=== PATIENT | female | born 1955 | race Caucasian/White ===

== ENCOUNTER 2023-01-11 13:06 | Inpatient (IN) | payer OTHER ==
[~2023-01-11] VITALS: Ht 167.6 cm; Wt 188.4 kg
[~2023-01-11 13:06] MED LIST: ALBUAER3 IN; CLIN300C70 PO; FURO1TAB31 PO; LISI20TA56 PO; METF-370 PO; POTA10TA51 PO
[2023-01-11 13:30] LABS: Basophils # (auto) 0.1 10 ^3/uL (0-0.2); Basophils % (auto) 0.7 % (0.0-2.0); Eosinophils # (auto) 0.3 10 ^3/uL (0-0.8); Eosinophils % (auto) 2.7 % (0.0-7.0); Hematocrit 48.5 % (36.0-46.0); Lymphocytes # (auto) 2.7 10 ^3/uL (0.4-5.4); Mean Corpuscular Hemoglobin 29.2 pg (28.0-32.0); Mean Corpuscular Volume 88.4 fL (80.0-100.0); Monocytes # (auto) 0.9 10 ^3/uL (0-1.3); Neutrophils # (auto) 6.4 10 ^3/uL (1.6-8.6); Neutrophils % (auto) 61.6 % (37.0-80.0); Nucleated Red Blood Cells % 0.1 %; Red Blood Cells 5.48 10^6/uL (4.0-5.20); Red Cell Distribution Width 14.3 % (11.8-14.3); White Blood Cell 10.3 10^3/uL (4.4-10.8)
[2023-01-11 13:49] LABS: INR 1.01 (0.9-1.15); Partial Thromboplastin Time 27.6 SEC (24.5-34.5)
[2023-01-11 13:58] LABS: Albumin 3.2 g/dL (3.4-5.0); Calcium 8.9 mg/dL (8.5-10.1); Magnesium 1.7 mg/dL (1.6-2.6); Potassium 4.3 mmol/L (3.5-5.1)
[2023-01-11 14:01] LABS: Bilirubin, Total 0.6 mg/dL (0.2-1.0); Total Protein 7.1 g/dL (6.4-8.2)
[2023-01-11 14:06] VITALS: PULSE 123; RESP 20; O2SAT 93
[2023-01-11] MEDS ORDERED: NITROGLYCERIN 0.4 MG SL TAB SL ONE (14:30)
[2023-01-11] MEDS ORDERED: dilTIAZem 25 MG/5 ML VIAL IV ONE (18:00)
[2023-01-11 20:11] VITALS: PULSE 126; RESP 22; O2SAT 92
[2023-01-11 20:30] LABS: Urine Bacteria MOD /hpf (None Seen); Urine Blood Negative /uL (Negative); Urine Specific Gravity 1.022 (1.001-1.035); Urine WBC 2 /hpf (0 - 5)
[2023-01-11] MEDS ORDERED: METOPROLOL TARTRATE 25 MG TAB PO ONE (20:30)
[2023-01-11] MEDS ORDERED: FUROSEMIDE 20 MG/2 ML VIAL IV ONE (20:45)
[2023-01-11] MEDS ORDERED: levoFLOXacin 500MG 100 ML IV ONE (21:00)
[2023-01-11] MEDS ORDERED: AMIODARONE HCL 150 MG in D5W 5% 100 ML IV ONE (22:45)
[2023-01-11] MEDS ORDERED: NITROGLYCERIN 0.4 MG SL TAB SL PRN (22:45)
[2023-01-11] MEDS ORDERED: MORPHINE SULFATE INJ 2 MG/ml SYRG IV PRN (22:45)
[2023-01-11] MEDS ORDERED: MAGNESIUM SULFATE 1GM/100ML 100 ML IV ONE (23:00)
[2023-01-11] MEDS ORDERED: AMIODARONE 450mg/250ml AE 250 ML IV SCH (23:00)
[2023-01-11] MEDS ORDERED: DEXTROSE (50%) 50ML SYRG IV PRN (23:30)
[2023-01-11] MEDS ORDERED: KETOROLAC TROMETH 30 MG/ML 1ML VIAL IV ONE (23:45)
[2023-01-12] MEDS ORDERED: AMIODARONE HCL (50 MG/ ML) 3 ML VIAL IV ONE (00:28)
[2023-01-12] MEDS: ACCU-CHEK COMFORT CURVE STRIP VI SCH ×4 (00:39→18:04)
[2023-01-12] MEDS: InsuLIN REG 1unit/0.01ml Soln (100units/ml) SC SCH ×4 (00:45→18:10)
[2023-01-12] MEDS: ACETAMINOPHEN 325 MG TAB PO PRN (03:15)
[2023-01-12 06:30] LABS: Basophils # (auto) 0.1 10 ^3/uL (0-0.2); Eosinophils # (auto) 0.2 10 ^3/uL (0-0.8); Eosinophils % (auto) 1.6 % (0.0-7.0); Hematocrit 50.3 % (36.0-46.0); Hemoglobin 16.7 g/dL (12.2-16.2); Lymphocytes # (auto) 2.4 10 ^3/uL (0.4-5.4); Lymphocytes % (auto) 19.7 % (10.0-50.0); Mean Corpuscular Hgb Conc. 33.1 g/dL (32.0-36.0); Mean Corpuscular Volume 87.5 fL (80.0-100.0); Monocytes # (auto) 1.3 10 ^3/uL (0-1.3); Monocytes % (auto) 10.7 % (0.0-12.0); Neutrophils # (auto) 8.3 10 ^3/uL (1.6-8.6); Nucleated Red Blood Cells % 0.6 %; Red Blood Cells 5.75 10^6/uL (4.0-5.20); Red Cell Distribution Width 13.9 % (11.8-14.3); White Blood Cell 12.4 10^3/uL (4.4-10.8)
[2023-01-12] MEDS: FUROSEMIDE 20 MG/2 ML VIAL IV SCH ×2 (06:31→13:31)
[2023-01-12 07:11] LABS: Albumin 3.2 g/dL (3.4-5.0); Calcium 9.3 mg/dL (8.5-10.1); Potassium 4.2 mmol/L (3.5-5.1)
[2023-01-12 07:14] LABS: BUN/Creatinine Ratio 22.6 (10.0-20.0); Bilirubin, Total 0.7 mg/dL (0.2-1.0); Total Protein 8.1 g/dL (6.4-8.2)
[2023-01-12 07:56] VITALS: PULSE 125; RESP 22; O2SAT 94
[2023-01-12] MEDS: AMIODARONE 450mg/250ml AE 250 ML IV SCH (09:15)
[2023-01-12] MEDS ORDERED: CIPROFLOXACIN 400MG/200ML 200 ML IV SCH (10:00)
[2023-01-12] MEDS: METOPROLOL TARTRATE 50 MG TAB PO SCH ×2 (12:24→22:06)
[2023-01-12] MEDS ORDERED: ASPirin 81 mg TAB PO ONE (16:45)
[2023-01-12] MEDS ORDERED: cefTRIAXone 1GM/50ML D5W 50 ML IV ONE (16:45)
[2023-01-12] MEDS ORDERED: DIGOXIN (250MCG/ML) 2 ML AMPULE IV ONE (16:45)
[2023-01-12] MEDS: FUROSEMIDE 40 MG/4 ML VIAL IV SCH (18:02)
[2023-01-12] MEDS: ENOXAPARIN SOD 150 MG/1 ML SYRINGE SC SCH (18:04)
[2023-01-12 19:30] VITALS: PULSE 128; RESP 20; O2SAT 91
[2023-01-12 23:43] VITALS: BP 108/53; PULSE 127; RESP 19; TEMP 98.2; O2SAT 95
[2023-01-13] VITALS (7 sets, daily range): BP systolic 91–123; BP diastolic 49–71; PULSE 115–130; RESP 20–22; TEMP 97.4–98.7; O2SAT 94–96
[2023-01-13] MEDS: ACCU-CHEK COMFORT CURVE STRIP VI SCH ×4 (00:01→18:25)
[2023-01-13] MEDS: InsuLIN REG 1unit/0.01ml Soln (100units/ml) SC SCH ×4 (00:02→18:26)
[2023-01-13] MEDS ORDERED: ASPI1TAB20 PO (01:19)
[2023-01-13] MEDS ORDERED: GABA-1250 PO (01:19)
[2023-01-13] MEDS ORDERED: LORA-622 PO (01:19)
[2023-01-13] MEDS ORDERED: ATOR40TA52 PO (01:19)
[2023-01-13] MEDS ORDERED: LOSA50TA46 PO (01:19)
[2023-01-13] MEDS ORDERED: GLIP5TAB12 PO (01:19)
[2023-01-13] MEDS: AMIODARONE 450mg/250ml AE 250 ML IV SCH ×2 (03:50→09:03)
[2023-01-13] MEDS: ENOXAPARIN SOD 150 MG/1 ML SYRINGE SC SCH ×2 (05:56→18:45)
[2023-01-13] MEDS: FUROSEMIDE 40 MG/4 ML VIAL IV SCH ×2 (05:56→16:31)
[2023-01-13 06:21] LABS: Basophils # (auto) 0.1 10 ^3/uL (0-0.2); Basophils % (auto) 0.5 % (0.0-2.0); Eosinophils # (auto) 0.3 10 ^3/uL (0-0.8); Eosinophils % (auto) 2.3 % (0.0-7.0); Hematocrit 48.7 % (36.0-46.0); Hemoglobin 16.3 g/dL (12.2-16.2); Lymphocytes # (auto) 3.6 10 ^3/uL (0.4-5.4); Lymphocytes % (auto) 30.3 % (10.0-50.0); Mean Corpuscular Hemoglobin 29.2 pg (28.0-32.0); Mean Corpuscular Hgb Conc. 33.5 g/dL (32.0-36.0); Mean Corpuscular Volume 87.3 fL (80.0-100.0); Monocytes # (auto) 1.4 10 ^3/uL (0-1.3); Monocytes % (auto) 12.1 % (0.0-12.0); Neutrophils # (auto) 6.5 10 ^3/uL (1.6-8.6); Neutrophils % (auto) 54.8 % (37.0-80.0); Nucleated Red Blood Cells % 0.4 %; Red Blood Cells 5.58 10^6/uL (4.0-5.20); Red Cell Distribution Width 14.1 % (11.8-14.3)
[2023-01-13 06:28] LABS: Potassium 3.7 mmol/L (3.5-5.1)
[2023-01-13 06:37] LABS: Bilirubin, Total 0.7 mg/dL (0.2-1.0); Calcium 8.8 mg/dL (8.5-10.1); Magnesium 1.9 mg/dL (1.6-2.6); Total Protein 7.6 g/dL (6.4-8.2)
[2023-01-13] MEDS: DIGOXIN (250MCG/ML) 2 ML AMPULE IV SCH (08:38)
[2023-01-13] MEDS: ASPirin 81 mg TAB PO SCH (08:44)
[2023-01-13] MEDS: METOPROLOL TARTRATE 50 MG TAB PO SCH ×2 (08:48→21:58)
[2023-01-13] MEDS: cefTRIAXone 1GM/50ML D5W 50 ML IV SCH (08:58)
[2023-01-13] MEDS ORDERED: AMIODARONE HCL 150 MG in D5W 5% 100 ML IV ONE (15:30)
[2023-01-13] MEDS ORDERED: AMIODARONE 450mg/250ml AE 250 ML IV SCH (15:30)
[2023-01-13] MEDS ORDERED: MAGNESIUM SULFATE 1GM/100ML 100 ML IV ONE (16:30)
[2023-01-13] MEDS ORDERED: DIGOXIN (250MCG/ML) 2 ML AMPULE IV ONE (23:15)
[2023-01-14] VITALS (7 sets, daily range): BP systolic 96–134; BP diastolic 53–92; PULSE 119–130; RESP 18–20; TEMP 97.6–98.2; O2SAT 93–99
[2023-01-14] MEDS: InsuLIN REG 1unit/0.01ml Soln (100units/ml) SC SCH ×5 (01:11→23:50)
[2023-01-14] MEDS: AMIODARONE 450mg/250ml AE 250 ML IV SCH ×2 (03:02→15:26)
[2023-01-14] MEDS: FUROSEMIDE 40 MG/4 ML VIAL IV SCH ×2 (06:06→18:04)
[2023-01-14] MEDS: ENOXAPARIN SOD 150 MG/1 ML SYRINGE SC SCH (06:06)
[2023-01-14] MEDS: ACCU-CHEK COMFORT CURVE STRIP VI SCH ×5 (06:19→23:50)
[2023-01-14 06:40] LABS: Basophils # (auto) 0.1 10 ^3/uL (0-0.2); Basophils % (auto) 0.4 % (0.0-2.0); Eosinophils # (auto) 0.3 10 ^3/uL (0-0.8); Eosinophils % (auto) 1.7 % (0.0-7.0); Hematocrit 47.6 % (36.0-46.0); Hemoglobin 15.8 g/dL (12.2-16.2); Lymphocytes % (auto) 19.4 % (10.0-50.0); Mean Corpuscular Hemoglobin 29.3 pg (28.0-32.0); Mean Corpuscular Hgb Conc. 33.3 g/dL (32.0-36.0); Monocytes # (auto) 1.8 10 ^3/uL (0-1.3); Monocytes % (auto) 11.7 % (0.0-12.0); Neutrophils # (auto) 10.5 10 ^3/uL (1.6-8.6); Neutrophils % (auto) 66.8 % (37.0-80.0); Nucleated Red Blood Cells % 0.3 %; Potassium 4.1 mmol/L (3.5-5.1); Red Blood Cells 5.41 10^6/uL (4.0-5.20); Red Cell Distribution Width 14.1 % (11.8-14.3); White Blood Cell 15.7 10^3/uL (4.4-10.8)
[2023-01-14 06:45] LABS: Albumin 3.1 g/dL (3.4-5.0); BUN/Creatinine Ratio 26.4 (10.0-20.0); Calcium 8.2 mg/dL (8.5-10.1); Magnesium 1.9 mg/dL (1.6-2.6)
[2023-01-14 06:48] LABS: Bilirubin, Total 0.7 mg/dL (0.2-1.0); Total Protein 6.8 g/dL (6.4-8.2)
[2023-01-14] MEDS ORDERED: MAGNESIUM SULFATE 1GM/100ML 100 ML IV ONE (07:45)
[2023-01-14] MEDS ORDERED: MORPHINE SULFATE INJ 2 MG/ml SYRG IV ONE (08:45)
[2023-01-14] MEDS: ASPirin 81 mg TAB PO SCH (10:18)
[2023-01-14] MEDS: METOPROLOL TARTRATE 50 MG TAB PO SCH ×2 (10:18→21:43)
[2023-01-14] MEDS ORDERED: METOPROLOL TARTRATE 25 MG TAB PO ONE (12:30)
[2023-01-14] MEDS: cefTRIAXone 1GM/50ML D5W 50 ML IV SCH (15:36)
[2023-01-14] MEDS: DIGOXIN (250MCG/ML) 2 ML AMPULE IV SCH (15:52)
[2023-01-14] MEDS: APIXABAN 5 MG TAB PO SCH (21:43)
[2023-01-14] MEDS: SIMETHICONE 80 MG CHEWABLE TABLET PO PRN (21:43)
[2023-01-14] MEDS: ACETAMINOPHEN 325 MG TAB PO PRN (21:49)
[2023-01-15 05:00] VITALS: BP 128/76; PULSE 125; RESP 16; TEMP 97.5; O2SAT 98
[2023-01-15] MEDS: AMIODARONE 450mg/250ml AE 250 ML IV SCH (05:15)
[2023-01-15] MEDS: FUROSEMIDE 40 MG/4 ML VIAL IV SCH (05:38)
[2023-01-15] MEDS: InsuLIN REG 1unit/0.01ml Soln (100units/ml) SC SCH ×2 (05:44→11:56)
[2023-01-15] MEDS: ACCU-CHEK COMFORT CURVE STRIP VI SCH ×2 (05:44→11:55)
[2023-01-15 06:18] LABS: Basophils # (auto) 0.1 10 ^3/uL (0-0.2); Basophils % (auto) 0.6 % (0.0-2.0); Eosinophils # (auto) 0.2 10 ^3/uL (0-0.8); Eosinophils % (auto) 1.9 % (0.0-7.0); Hematocrit 46.3 % (36.0-46.0); Hemoglobin 15.5 g/dL (12.2-16.2); Lymphocytes # (auto) 3.9 10 ^3/uL (0.4-5.4); Lymphocytes % (auto) 29.2 % (10.0-50.0); Mean Corpuscular Hemoglobin 29.3 pg (28.0-32.0); Mean Corpuscular Hgb Conc. 33.4 g/dL (32.0-36.0); Mean Corpuscular Volume 87.9 fL (80.0-100.0); Monocytes # (auto) 1.7 10 ^3/uL (0-1.3); Monocytes % (auto) 12.8 % (0.0-12.0); Neutrophils # (auto) 7.4 10 ^3/uL (1.6-8.6); Neutrophils % (auto) 55.5 % (37.0-80.0); Potassium 3.8 mmol/L (3.5-5.1); Red Blood Cells 5.27 10^6/uL (4.0-5.20); White Blood Cell 13.4 10^3/uL (4.4-10.8)
[2023-01-15 06:31] LABS: Magnesium 2.3 mg/dL (1.6-2.6)
[2023-01-15 06:37] LABS: Total Protein 6.9 g/dL (6.4-8.2)
[2023-01-15] MEDS ORDERED: SODIUM CHLORIDE 0.9% 1,000 ML IV SCH (07:30)
[2023-01-15 08:00] VITALS: BP 101/62; PULSE 122; PULSE 127; RESP 20; TEMP 98.1; O2SAT 93
[2023-01-15 08:53] LABS: INR 1.07 (0.9-1.15); Partial Thromboplastin Time 31.7 SEC (24.5-34.5)
[2023-01-15 09:00] VITALS: BP 101/62; PULSE 122; RESP 20; TEMP 98.1; O2SAT 93
[2023-01-15] MEDS ORDERED: DIGO0.12 PO (09:35)
[2023-01-15] MEDS ORDERED: APIX5TAB PO ×2 (09:35)
[2023-01-15] MEDS ORDERED: AMIO200T13 PO (09:35)
[2023-01-15] MEDS ORDERED: MET50T PO (09:35)
[2023-01-15] MEDS: cefTRIAXone 1GM/50ML D5W 50 ML IV SCH (10:03)
[2023-01-15] MEDS: ASPirin 81 mg TAB PO SCH (10:03)
[2023-01-15] MEDS: METOPROLOL TARTRATE 50 MG TAB PO SCH (10:03)
[2023-01-15] MEDS: APIXABAN 5 MG TAB PO SCH (10:03)
[2023-01-15] MEDS: DIGOXIN (250MCG/ML) 2 ML AMPULE IV SCH (10:04)
[2023-01-15] MEDS: SIMETHICONE 80 MG CHEWABLE TABLET PO PRN (10:34)
[2023-01-15 13:00] VITALS: BP 109/58; PULSE 104; RESP 20; TEMP 98; O2SAT 99
[2023-01-15 16:38] VITALS: BP 148/100; PULSE 118; RESP 20; TEMP 98; O2SAT 98
== END 2023-01-15 18:00 | disposition home health service (06) | DRG 309 ==
LOC: ER 13:06 → TELE 23:01 → OBSVTOIN 01-12 14:02 → TELE-EAST 01-12 22:50
PROVIDERS: ADMIT Internal Medicine; ATTEND Internal Medicine
PROC: 05HD33Z Insertion of Infusion Device into Right Cephalic Vein, Percutaneous Approach (ICD-10-PCS; principal; 2023-01-14)
PROC: B54MZZA Ultrasonography of Right Upper Extremity Veins, Guidance (ICD-10-PCS; 2023-01-14)
DX: I48.20 Chronic atrial fibrillation, unspecified (principal); J91.8 Pleural effusion in other conditions classified elsewhere; N39.0 Urinary tract infection, site not specified; Z68.44 Body mass index [BMI] 60.0-69.9, adult; I11.0 Hypertensive heart disease with heart failure; I47.1 Supraventricular tachycardia; I48.92 Unspecified atrial flutter; I50.9 Heart failure, unspecified; E66.01 Morbid (severe) obesity due to excess calories; E78.5 Hyperlipidemia, unspecified; E11.9 Type 2 diabetes mellitus without complications; E66.9 Obesity, unspecified; Z79.84 Long term (current) use of oral hypoglycemic drugs
CPT/HCPCS: 36415; 71045; 80053; 80061; 80162; 81001; 82962; 83036; 83735; 83880; 84443; 84484; 85025; 85379; 85610; 85730; 86850; 86900; 86901; 93005; 93970; 96365; 96366; 96367; 96375; 96376; G0378; J0696; J1815; J1885; J1956; J7060